=== PATIENT | female | born 1930 | race Caucasian/White ===

== ENCOUNTER 2017-08-28 11:22 | Emergency (ER) | payer MEDICARE, BC ==
--- NOTE | 2017-08-28 12:22 | EDM.PDOC ---
ED HPI GENERAL MEDICAL PROBLEM - General Chief Complaint: General Stated Complaint: WEAK/OUT OF IT/SOB Time Seen by Provider: 08/28/17 11:50 Source of Information: Reports: Patient, Old Records, Other (PT WAS SEEN TODAY BECAUSE OF INCREASED WEAKNESS AND SOME DIZZINESS. sHE HAD BEEN SEEN EARLIER AT [facility]. sHE HAS MOVED HER RECORDS TO [facility] AND SHE WILL BE SEEING dR Browning. ) History Limitations: Reports: No Limitations - History of Present Illness Onset: Gradual Duration: Day(s): Location: Reports: Other ( DIZZINESS AND WEAKNESS) Associated Symptoms: Reports: Weakness, Other (DIZZINESS) - Related Data Allergies Allergy/AdvReac Type Severity Reaction Status Date / Time codeine Allergy Severe Cannot Verified 08/28/17 11:58 Remember prochlorperazine edisylate Allergy Unknown Cannot Verified 08/28/17 11:58 [From Compazine] Remember prochlorperazine maleate Allergy Unknown Cannot Verified 08/28/17 11:58 [From Compazine] Remember ezetimibe [From Zetia] Allergy Cannot Verified 08/28/17 11:58 Remember midazolam HCl [From Versed] Allergy Rash Verified 08/28/17 11:58 Home Meds: Home Meds Aspirin [Isidro Chewable Aspirin] 81 mg PO QAM 08/15/13 [History] Multivit-Min/FA/Lycopene/Lut [Centrum Silver] 1 each PO QAM 08/15/13 [History] Rosuvastatin [Crestor] 2.5 mg PO QAM 08/15/13 [History] Docusate Sodium 100 mg PO DAILY 04/02/15 [History] Past Medical History Cardiovascular History: Reports: High Cholesterol Gastrointestinal History: Reports: Chronic Constipation, Diverticulosis Other Genitourinary History: urethracarnuncle 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 OB/BYN History: appt with ENGINEERING VICE PRESIDENT in [facility] shows abnormal ovary Musculoskeletal History: Reports: Fracture Other Musculoskeletal History: coccyx fx, left arm fx Neurological History: Reports: CVA Other Neuro History: L leg affected fatigues easily - Infectious Disease History Infectious Disease History: Reports: Mumps - Past Surgical History HEENT Surgical History: Reports: Eye Surgery, Tonsillectomy GI Surgical History: Reports: Appendectomy, Cholecystectomy Female Surgical History: Reports: D&C, Other (See Below) Other Female Surgeries/Procedures: urethral dilation surgery Neurological Surgical History: Reports: Lumbar Spine Musculoskeletal Surgical History: Reports: Arthroscopic Knee Social & Family History - Tobacco Use Smoking Status *Q: Never Smoker Second Hand Smoke Exposure: No - Caffeine Use Caffeine Use: Reports: Coffee - Alcohol Use Days Per Week of Alcohol Use: 0 - Recreational Drug Use Recreational Drug Use: No ED ROS GENERAL - Review of Systems Review Of Systems: See Below Constitutional: Reports: Weakness, Fatigue, Other ( APPETITE IS GOOD. ) HEENT: Reports: No Symptoms Respiratory: Reports: No Symptoms Cardiovascular: Reports: No Symptoms Endocrine: Reports: No Symptoms GI/Abdominal: Reports: No Symptoms : Reports: No Symptoms Musculoskeletal: Reports: No Symptoms Skin: Reports: No Symptoms Neurological: Reports: Dizziness, Weakness, Other ( NO SIG HEADACHE.) Psychiatric: Reports: Anxiety ED EXAM, GENERAL - Physical Exam Exam: See Below Free Text/Narrative:: PT ARRIVED WITH DIZZINESS AND FEELING OFF BALANCE. Exam Limited By: No Limitations General Appearance: Alert, No Apparent Distress, Other (PUPILS ARE EQUAL AND REACTIVE. ) Ears: Normal TMs Nose: Normal Inspection Throat/Mouth: Normal Inspection Head: Atraumatic Neck: Other (PT HAS NO THYROID ENLARGEMNT OF CAROTID BRUITS. ) Respiratory/Chest: No Respiratory Distress Cardiovascular: Regular Rate, Rhythm GI/Abdominal: Soft, Non-Tender (Female) Exam: Deferred Rectal (Female) Exam: Deferred Back Exam: Normal Inspection Extremities: Normal Inspection Neurological: Alert, Oriented, Normal Cognition Psychiatric: Normal Affect Course - Vital Signs Last Recorded V/S: Last Vital Signs Temp 35.1 C L 08/28/17 11:57 Pulse 79 08/28/17 13:42 Resp 19 08/28/17 13:42 BP 147/76 H 08/28/17 14:04 Pulse Ox 97 08/28/17 13:42 Orthostatic Blood Pressure [ 152/71 Standing] Orthostatic Blood Pressure [ 142/73 Sitting] Orthostatic Blood Pressure [ 158/74 Supine] - Orders/Labs/Meds Labs: Laboratory Tests 08/28/17 08/28/17 08/28/17 Range/Units 12:44 12:49 12:49 WBC 6.1 (4.5-11.0) K/uL RBC 4.61 (3.30-5.50) M/uL Hgb 13.7 (12.0-15.0) g/dL Hct 40.3 (36.0-48.0) % MCV 87 (80-98) fL MCH 30 (27-31) pg MCHC 34 (32-36) % Plt Count 232 (150-400) K/uL Neut % (Auto) 64 (36-66) % Lymph % (Auto) 26 (24-44) % [place] % (Auto) 9 H (2-6) % Eos % (Auto) 2 (2-4) % Baso % (Auto) 0 (0-1) % Sodium 138 L (140-148) mmol/L Potassium 4.3 (3.6-5.2) mmol/L Chloride 103 (100-108) mmol/L Carbon Dioxide 29 (21-32) mmol/L Anion Gap 10.3 (5.0-14.0) mmol/L BUN 22 H (7-18) mg/dL Creatinine 0.9 (0.6-1.0) mg/dL Est Cr Clr Drug Dosing 35.74 mL/min Estimated GFR (MDRD) 59 L (>60) Glucose 95 (74-106) mg/dL Calcium 9.0 (8.5-10.1) mg/dL Total Bilirubin 0.3 (0.2-1.0) mg/dL AST 23 (15-37) U/L ALT 28 (12-78) U/L Alkaline Phosphatase 67 (46-116) U/L Troponin I (0.000-0.056) ng/mL C-Reactive Protein (0.0-0.3) mg/dL Total Protein 6.3 L (6.4-8.2) g/dL Albumin 3.3 L (3.4-5.0) g/dL Globulin 3.0 (2.3-3.5) g/dL Albumin/Globulin Ratio 1.1 L (1.2-2.2) TSH, Ultra Sensitive (0.358-3.740) uIU/mL Urine Color Yellow Urine Appearance Clear Urine pH 6.5 (4.5-8.0) Ur Specific [place] 1.010 (1.008-1.030) Urine Protein Negative (NEGATIVE) mg/dL Urine Glucose (UA) Normal (NEGATIVE) mg/dL Urine Ketones Negative (NEGATIVE) mg/dL Urine Occult Blood Negative (NEGATIVE) Urine Nitrite Negative (NEGATIVE) Urine Bilirubin Negative (NEGATIVE) Urine Urobilinogen Normal (NORMAL) mg/dL Ur Leukocyte Esterase Negative (NEGATIVE) Urine RBC 0-5 (0-5) Urine WBC Not seen (0-5) Ur Epithelial Cells Not seen Amorphous Sediment Not seen Urine Bacteria Not seen Urine Mucus Not seen 08/28/17 08/28/17 08/28/17 Range/Units 12:49 13:10 13:11 WBC (4.5-11.0) K/uL RBC (3.30-5.50) M/uL Hgb (12.0-15.0) g/dL Hct (36.0-48.0) % MCV (80-98) fL MCH (27-31) pg MCHC (32-36) % Plt Count (150-400) K/uL Neut % (Auto) (36-66) % Lymph % (Auto) (24-44) % [place] % (Auto) (2-6) % Eos % (Auto) (2-4) % Baso % (Auto) (0-1) % Sodium (140-148) mmol/L Potassium (3.6-5.2) mmol/L Chloride (100-108) mmol/L Carbon Dioxide (21-32) mmol/L Anion Gap (5.0-14.0) mmol/L BUN (7-18) mg/dL Creatinine (0.6-1.0) mg/dL Est Cr Clr Drug Dosing mL/min Estimated GFR (MDRD) (>60) Glucose (74-106) mg/dL Calcium (8.5-10.1) mg/dL Total Bilirubin (0.2-1.0) mg/dL AST (15-37) U/L ALT (12-78) U/L Alkaline Phosphatase (46-116) U/L Troponin I < 0.017 (0.000-0.056) ng/mL C-Reactive Protein < 0.05 (0.0-0.3) mg/dL Total Protein (6.4-8.2) g/dL Albumin (3.4-5.0) g/dL Globulin (2.3-3.5) g/dL Albumin/Globulin Ratio (1.2-2.2) TSH, Ultra Sensitive 1.279 (0.358-3.740) uIU/mL Urine Color Urine Appearance Urine pH (4.5-8.0) Ur Specific [place] (1.008-1.030) Urine Protein (NEGATIVE) mg/dL Urine Glucose (UA) (NEGATIVE) mg/dL Urine Ketones (NEGATIVE) mg/dL Urine Occult Blood (NEGATIVE) Urine Nitrite (NEGATIVE) Urine Bilirubin (NEGATIVE) Urine Urobilinogen (NORMAL) mg/dL Ur Leukocyte Esterase (NEGATIVE) Urine RBC (0-5) Urine WBC (0-5) Ur Epithelial Cells Amorphous Sediment Urine Bacteria Urine Mucus - Re-Assessments/Exams Free Text/Narrative Re-Assessment/Exam: 09/01/17 10:05 PT WAS FOUND TO HAVE NORMAL LAB WORK. SHE WILL BE SCHEDULED FOR A CAROTID US ANS SHE WILL SEE DR BROWNING BACK IN FOLLOW UP. Departure - Departure Time of Disposition: 15:33 Disposition: Home, Self-Care 01 Condition: Fair Clinical Impression: Fatigue, Dizziness - Discharge Information Instructions: Fatigue, Dizziness, [id number] Referrals: Rylan Browning MD [Primary Care Provider] - Forms: ED Department Discharge Care Plan Goals: rtc for a carotid Us, repeat appointment at [place]. with Dr Browning, next week.
[2017-08-28 15:00] VITALS: BP 147/76
== END 2017-08-28 16:18 | disposition home or self-care (01) ==
LOC: JP.ED 11:22
DX: R53.83 Other fatigue (principal); R42 Dizziness and giddiness; E78.00 Pure hypercholesterolemia, unspecified; Z86.73 Personal history of transient ischemic attack (TIA), and cerebral infarction without residual deficits; Z88.5 Allergy status to narcotic agent; Z88.8 Allergy status to other drugs, medicaments and biological substances; Z79.899 Other long term (current) drug therapy; Z79.82 Long term (current) use of aspirin
CPT/HCPCS: 36415; 80053; 81001; 84443; 84484; 85025; 86140; 99285

== ENCOUNTER 2018-09-13 10:09 | Observation (INO) | payer MEDICARE, BC ==
[2018-09-13] MEDS ORDERED: Ondansetron 4 MG/2 ML SDV IVPUSH ONE (10:44)
--- NOTE | 2018-09-13 10:44 | EDM.PDOC ---
ED HPI GENERAL MEDICAL PROBLEM - General Chief Complaint: Syncope Stated Complaint: VIA NORTH Time Seen by Provider: 09/13/18 10:41 Source of Information: Reports: Patient History Limitations: Reports: No Limitations - History of Present Illness INITIAL COMMENTS - FREE TEXT/NARRATIVE: Pt got up this am and she was working in the kitchen. The last time she remembers was about 9am. At 10 am she found herself on the floor she had broken a bar stool in her kitchen, She was very weak but she was able to crawl to the phone. When she sits up now she is very liteheaded. Onset: Today, Sudden Duration: Minutes: Location: Reports: Head Associated Symptoms: Reports: Syncope, Weakness - Related Data Allergies Allergy/AdvReac Type Severity Reaction Status Date / Time codeine Allergy Severe Cannot Verified 09/13/18 10:15 Remember prochlorperazine edisylate Allergy Unknown Cannot Verified 09/13/18 10:15 [From Compazine] Remember prochlorperazine maleate Allergy Unknown Cannot Verified 09/13/18 10:15 [From Compazine] Remember ezetimibe [From Zetia] Allergy Cannot Verified 09/13/18 10:15 Remember midazolam HCl [From Versed] Allergy Rash Verified 09/13/18 10:15 Home Meds: Home Meds Aspirin [Isidro Chewable Aspirin] 81 mg PO QAM 08/15/13 [History] Multivit-Min/FA/Lycopene/Lut [Centrum Silver] 1 each PO QAM 08/15/13 [History] Rosuvastatin [Crestor] 5 mg PO ASDIRECTED 08/15/13 [History] Docusate Sodium 100 mg PO DAILY 04/02/15 [History] Past Medical History HEENT History: Reports: None Cardiovascular History: Reports: High Cholesterol Gastrointestinal History: Reports: Chronic Constipation, Diverticulosis Genitourinary History: Reports: Other (See Below) Other Genitourinary History: urethracarnuncle 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 OFFICER in [facility] shows abnormal ovary Musculoskeletal History: Reports: Fracture Other Musculoskeletal History: coccyx fx, left arm fx Neurological History: Reports: CVA Other Neuro History: L leg affected fatigues easily - Infectious Disease History Infectious Disease History: Reports: Mumps - Past Surgical History Head Surgeries/Procedures: Reports: None HEENT Surgical History: Reports: Eye Surgery, Tonsillectomy Cardiovascular Surgical History: Reports: None GI Surgical History: Reports: Appendectomy, Cholecystectomy Female Surgical History: Reports: D&C, Other (See Below) Other Female Surgeries/Procedures: urethral dilation surgery Neurological Surgical History: Reports: Lumbar Spine Musculoskeletal Surgical History: Reports: Arthroscopic Knee Dermatological Surgical History: Reports: None Social & Family History - Tobacco Use Smoking Status *Q: Never Smoker Second Hand Smoke Exposure: No - Caffeine Use Caffeine Use: Reports: Coffee - Recreational Drug Use Recreational Drug Use: No ED ROS GENERAL - Review of Systems Review Of Systems: See Below Constitutional: Reports: Weakness HEENT: Reports: No Symptoms Respiratory: Reports: No Symptoms Cardiovascular: Reports: No Symptoms Endocrine: Reports: No Symptoms GI/Abdominal: Reports: No Symptoms : Reports: No Symptoms Musculoskeletal: Reports: Back Pain Skin: Reports: No Symptoms Neurological: Reports: Syncope, Other (pt is feeling lite headed at this time. ) Psychiatric: Reports: No Symptoms - Physical Exam Exam: See Below Text/Narrative:: pt had an episode this am when she was working in the kitchen and she found herself on the floor 1 hr later > When she woke up she felt terribly weak. She felt like she was going to pass out whenever she tried to sit up. Exam Limited By: No Limitations General Appearance: Alert, No Apparent Distress, Anxious, Other (pupils are equal and reactive. ) Ears: Normal TMs Nose: Normal Inspection Throat/Mouth: Normal Inspection Head Exam: Atraumatic Neck: Normal Inspection Respiratory/Chest: No Respiratory Distress Cardiovascular: Regular Rate, Rhythm, Other (pt diod have some irregularities in the ambulance. ) GI/Abdominal: Soft, Non-Tender Rectal (Female) Exam: Deferred Neuro Exam (Abbreviated): Alert, Oriented, Normal Cognition Back Exam: Normal Inspection Extremities: Normal Inspection Psychiatric: Anxious Course - Vital Signs Last Recorded V/S: Last Vital Signs Temp 36.1 C 09/15/18 07:00 Pulse 61 09/15/18 07:00 Resp 16 09/15/18 07:00 BP 127/63 09/15/18 07:00 Pulse Ox 93 L 09/15/18 07:00 Orthostatic Blood Pressure [ 96/48 Sitting] Orthostatic Blood Pressure [ 103/45 Supine] - Orders/Labs/Meds Labs: Laboratory Tests 09/13/18 09/13/18 09/13/18 Range/Units 10:11 10:25 10:25 WBC 5.4 (4.5-11.0) K/uL RBC 4.88 (3.30-5.50) M/uL Hgb 14.4 (12.0-15.0) g/dL Hct 42.9 (36.0-48.0) % MCV 88 (80-98) fL MCH 30 (27-31) pg MCHC 34 (32-36) % Plt Count 265 (150-400) K/uL Neut % (Auto) 55 (36-66) % Lymph % (Auto) 34 (24-44) % [place] % (Auto) 9 H (2-6) % Eos % (Auto) 2 (2-4) % Baso % (Auto) 1 (0-1) % Sodium (140-148) mmol/L Potassium (3.6-5.2) mmol/L Chloride (100-108) mmol/L Carbon Dioxide (21-32) mmol/L Anion Gap (5.0-14.0) mmol/L BUN (7-18) mg/dL Creatinine (0.6-1.0) mg/dL Est Cr Clr Drug Dosing mL/min Estimated GFR (MDRD) (>60) Glucose (74-106) mg/dL Calcium (8.5-10.1) mg/dL Total Bilirubin (0.2-1.0) mg/dL AST (15-37) U/L ALT (12-78) U/L Alkaline Phosphatase (46-116) U/L Creatine Kinase (26-192) U/L Troponin I < 0.017 (0.000-0.056) ng/mL Total Protein (6.4-8.2) g/dL Albumin (3.4-5.0) g/dL Globulin (2.3-3.5) g/dL Albumin/Globulin Ratio (1.2-2.2) Urine Color Yellow Urine Appearance Clear Urine pH 6.0 (4.5-8.0) Ur Specific [place] 1.015 (1.008-1.030) Urine Protein Negative (NEGATIVE) mg/dL Urine Glucose (UA) Normal (NEGATIVE) mg/dL Urine Ketones 15 H (NEGATIVE) mg/dL Urine Occult Blood Negative (NEGATIVE) Urine Nitrite Negative (NEGATIVE) Urine Bilirubin Negative (NEGATIVE) Urine Urobilinogen Normal (NORMAL) mg/dL Ur Leukocyte Esterase Negative (NEGATIVE) Urine RBC 0-5 (0-5) Urine WBC 0-5 (0-5) Ur Epithelial Cells Rare Amorphous Sediment Not seen Urine Bacteria Moderate Urine Mucus Not seen 09/13/18 09/13/18 Range/Units 10:25 10:35 WBC (4.5-11.0) K/uL RBC (3.30-5.50) M/uL Hgb (12.0-15.0) g/dL Hct (36.0-48.0) % MCV (80-98) fL MCH (27-31) pg MCHC (32-36) % Plt Count (150-400) K/uL Neut % (Auto) (36-66) % Lymph % (Auto) (24-44) % [place] % (Auto) (2-6) % Eos % (Auto) (2-4) % Baso % (Auto) (0-1) % Sodium 137 L (140-148) mmol/L Potassium 4.1 (3.6-5.2) mmol/L Chloride 102 (100-108) mmol/L Carbon Dioxide 28 (21-32) mmol/L Anion Gap 11.1 (5.0-14.0) mmol/L BUN 19 H (7-18) mg/dL Creatinine 1.1 H (0.6-1.0) mg/dL Est Cr Clr Drug Dosing 28.68 mL/min Estimated GFR (MDRD) 47 L (>60) Glucose 112 H (74-106) mg/dL Calcium 9.5 (8.5-10.1) mg/dL Total Bilirubin 0.6 D (0.2-1.0) mg/dL AST 22 (15-37) U/L ALT 27 (12-78) U/L Alkaline Phosphatase 85 (46-116) U/L Creatine Kinase 73 (26-192) U/L Troponin I (0.000-0.056) ng/mL Total Protein 7.1 (6.4-8.2) g/dL Albumin 3.4 (3.4-5.0) g/dL Globulin 3.7 H (2.3-3.5) g/dL Albumin/Globulin Ratio 0.9 L (1.2-2.2) Urine Color Urine Appearance Urine pH (4.5-8.0) Ur Specific [place] (1.008-1.030) Urine Protein (NEGATIVE) mg/dL Urine Glucose (UA) (NEGATIVE) mg/dL Urine Ketones (NEGATIVE) mg/dL Urine Occult Blood (NEGATIVE) Urine Nitrite (NEGATIVE) Urine Bilirubin (NEGATIVE) Urine Urobilinogen (NORMAL) mg/dL Ur Leukocyte Esterase (NEGATIVE) Urine RBC (0-5) Urine WBC (0-5) Ur Epithelial Cells Amorphous Sediment Urine Bacteria Urine Mucus Meds: Medications Discontinued Medications Generic Name Dose Route Start Last Admin Trade Name Freq PRN Reason Stop Dose Admin Acetaminophen 650 mg 09/13/18 13:49 09/13/18 19:18 Tylenol PO 650 mg Q4H PRN Administration Pain (Mild 1-3)/fever Aspirin 81 mg 09/14/18 09:00 09/15/18 11:34 Aspirin PO Not Given QAM ARI Diphenhydramine HCl 25 mg 09/13/18 22:05 Benadryl PO BEDTIME PRN Insomnia Enoxaparin Sodium 40 mg 09/13/18 14:00 09/14/18 13:34 Lovenox SUBCUT 40 mg Q24H ARI Administration Sodium Chloride 1,000 mls @ 999 mls/hr 09/13/18 11:30 09/13/18 11:40 Normal Saline IV 999 mls/hr ASDIRECTED ARI Administration Sodium Chloride 1,000 mls @ 400 mls/hr 09/13/18 13:15 Normal Saline IV ASDIRECTED ARI Sodium Chloride 1,000 mls @ 75 mls/hr 09/13/18 13:49 09/14/18 05:00 Normal Saline IV 75 mls/hr ASDIRECTED ARI Administration Ondansetron HCl 4 mg 09/13/18 10:44 09/13/18 11:11 Zofran IVPUSH 09/13/18 10:45 4 mg ONETIME ONE Administration Ondansetron HCl 4 mg 09/13/18 13:49 Zofran IV Q4H PRN Nausea/Vomiting Rosuvastatin Calcium 2.5 mg 09/14/18 09:00 09/15/18 11:34 Crestor PO Not Given QAM ARI Senna/Docusate Sodium 1 tab 09/13/18 13:49 Senna Plus PO BID PRN Constipation Sodium Chloride 10 ml 09/13/18 13:49 Saline Flush FLUSH ASDIRECTED PRN Keep Vein Open - Re-Assessments/Exams Free Text/Narrative Re-Assessment/Exam: 09/13/18 13:14 pt was monitored for her rhythm which looked good. When she would sit up her bp did vary and dropped significantly. She was very lite headed at that time. 09/13/18 13:15 Her lab work did look good. Her ekg did not show acute problems. Her cat scan of the head was normal. Her xrays of the lumbar spine and cocyx was normal 09/13/18 13:18 Pt did have a sig bp drop when she sat up. Departure - Departure Time of Disposition: 13:18 Disposition: Admitted As Inpatient 65 Condition: Fair Clinical Impression: Postural hypotension, Dehydration, Arrhythmia, atrial - Discharge Information
[2018-09-13] MEDS ORDERED: Sodium Chloride 0.9% 1,000 ML IV SCH ×2 (11:30→13:15)
--- NOTE | 2018-09-13 13:01 | CRLCT ---
Final Report: INDICATION: Passed out. TECHNIQUE: CT head without IV contrast. FINDINGS: The hyperdense area nodularity and/or nodular opacity in the left sphenoid sinus measures 1.5 cm and could be related to a polyp, or dense mucus and fluid or other mass density. I suspect this is likely inflammatory. Small amounts of fluid and mucosal thickening in the ethmoidal sinuses. Mild to moderate cerebral and cerebellar atrophy. No intracranial hemorrhage, edema, or mass effect. Mild small vessel ischemic disease. Remainder negative. IMPRESSION: 1. Chronic intracranial disease as described above without acute intracranial disease. 2. Moderate-sized hyperdense area of nodular opacity in the left sphenoid sinus could be a polyp, mass or more likely inflammatory opacity. Mild bilateral ethmoidal sinusitis. Please note that all CT scans at this facility use dose modulation, iterative reconstruction, and/or weight-based dosing when appropriate to reduce radiation dose to as low as reasonably achievable. Dictated by Song Lucero MD @ Sep 13 2018 11:47AM (Electronic Signature) MTDD
--- NOTE | 2018-09-13 13:06 | CRLCR ---
Final Report: INDICATION: Pain in the lower lumbar and coccyx area. Pain in pelvis. Fell. TECHNIQUE: AP pelvis. Four views lumbar spine. COMPARISON: Pelvic views 04/02/2015. FINDINGS: No acute fracture or dislocation in the pelvis. Mild to moderate degenerative arthritis both hips slightly more prominent. Osteopenia. Degenerative changes SI joints and pubic symphysis. Mild to moderate thoracolumbar scoliosis. Nonspecific gas distention of stomach, small bowel and colon. Moderately large amount of stool in the rectum consistent with fecal impaction. Mild anterior subluxation of L4 on L5 stable. Marked narrowing L5 interspace. Moderate narrowing L4 interspace. Mild degenerate hypertrophic changes throughout the lumbar spine with more advanced lower lumbar facet arthropathy. Remainder negative. IMPRESSION: Lateral view does not include the coccyx bone. If desired additional views of the coccyx bone could be obtained to exclude fracture or posttraumatic abnormality of the spine. Without a lateral view fracture subluxation of the coccyx bone cannot be excluded. No acute fracture or dislocation in the pelvis. No acute fracture in lumbar spine. Stable mild anterior subluxation of L4 on L5. Degenerative arthritis spine and hips. Dictated by Song Lucero MD @ Sep 13 2018 12:08PM (Electronic Signature) [email or web address]
--- NOTE | 2018-09-13 13:09 | CRLCR ---
Final Report: INDICATION: Pain in the lower lumbar and coccyx area. TECHNIQUE: AP pelvis. Four views lumbar spine. COMPARISON: Pelvic views 04/02/2015. FINDINGS: No acute fracture or dislocation in the pelvis. Mild to moderate degenerative arthritis both hips slightly more prominent. Osteopenia. Degenerative changes SI joints and pubic symphysis. Mild to moderate thoracolumbar scoliosis. Nonspecific gas distention of stomach, small bowel and colon. Moderately large amount of stool in the rectum consistent with fecal impaction. Mild anterior subluxation of L4 on L5 stable. Marked narrowing L5 interspace. Moderate narrowing L4 interspace. Mild degenerate hypertrophic changes throughout the lumbar spine with more advanced lower lumbar facet arthropathy. Remainder negative. IMPRESSION: Lateral view does not include the coccyx bone. If desired additional views of the coccyx bone could be obtained to exclude fracture or posttraumatic abnormality of the spine. Without a lateral view fracture subluxation of the coccyx bone cannot be excluded. No acute fracture or dislocation in the pelvis. No acute fracture in lumbar spine. Stable mild anterior subluxation of L4 on L5. Degenerative arthritis spine and hips. Dictated by Song Lucero MD @ Sep 13 2018 12:06PM (Electronic Signature) [email or web address]
--- NOTE | 2018-09-13 13:22 | PCM.HP ---
H&P History of Present Illness - General Date of Service: 09/13/18 Admit Problem/Dx: Admission Diagnosis/Problem Admission Diagnosis/Problem Syncope Source of Information: Patient, Family, Provider, RN Notes Reviewed History Limitations: Reports: No Limitations - History of Present Illness Initial Comments - Free Text/Narative: Ms. Gipson is an 88-year-old woman who is admitted through the emergency department to observation status, for further evaluation of a syncopal episode. She was feeling well this morning and was up moving about in her kitchen when she suddenly lost consciousness and woke up on the floor. She did not have much in the way of preceding symptoms that had been feeling well up until the episode of syncope. She has a history of 1 previous syncopal episode that occurred approximately 15 years ago. She is otherwise been feeling well denies any history of chest pain, palpitations, or lightheadedness. Evaluation in the emergency department is been remarkable for orthostatic hypotension but no other significant abnormalities have been identified. Laboratory studies and CT scan of the head were unremarkable. Cardiac monitoring thus far in the emergency department has shown no significant dysrhythmias. She currently is on no blood pressure lowering medications. - Related Data Allergies/Adverse Reactions: Allergies Allergy/AdvReac Type Severity Reaction Status Date / Time codeine Allergy Severe Cannot Verified 09/13/18 10:15 Remember prochlorperazine edisylate Allergy Unknown Cannot Verified 09/13/18 10:15 [From Compazine] Remember prochlorperazine maleate Allergy Unknown Cannot Verified 09/13/18 10:15 [From Compazine] Remember ezetimibe [From Zetia] Allergy Cannot Verified 09/13/18 10:15 Remember midazolam HCl [From Versed] Allergy Rash Verified 09/13/18 10:15 Home Medications: Home Meds Aspirin [Isidro Chewable Aspirin] 81 mg PO QAM 08/15/13 [History] Multivit-Min/FA/Lycopene/Lut [Centrum Silver] 1 each PO QAM 08/15/13 [History] Rosuvastatin [Crestor] 2.5 mg PO QAM 08/15/13 [History] Docusate Sodium 100 mg PO DAILY 04/02/15 [History] Past Medical History HEENT History: Reports: None Cardiovascular History: Reports: High Cholesterol Gastrointestinal History: Reports: Chronic Constipation, Diverticulosis Genitourinary History: Reports: Other (See Below) Other Genitourinary History: urethracarnuncle 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 OB/BYN History: appt with [facility] in [facility] shows abnormal ovary Musculoskeletal History: Reports: Fracture Other Musculoskeletal History: coccyx fx, left arm fx Neurological History: Reports: CVA Other Neuro History: L leg affected fatigues easily - Infectious Disease History Infectious Disease History: Reports: Mumps - Past Surgical History Head Surgeries/Procedures: Reports: None HEENT Surgical History: Reports: Eye Surgery, Tonsillectomy Cardiovascular Surgical History: Reports: None GI Surgical History: Reports: Appendectomy, Cholecystectomy Female Surgical History: Reports: D&C, Other (See Below) Other Female Surgeries/Procedures: urethral dilation surgery Neurological Surgical History: Reports: Lumbar Spine Musculoskeletal Surgical History: Reports: Arthroscopic Knee Dermatological Surgical History: Reports: None Social & Family History - Tobacco Use Smoking Status *Q: Never Smoker Second Hand Smoke Exposure: No - Caffeine Use Caffeine Use: Reports: Coffee - Recreational Drug Use Recreational Drug Use: No H&P Review of Systems - Review of Systems: Review Of Systems: See Below General: Denies: Fever, Chills, Weakness HEENT: Reports: No Symptoms Pulmonary: Reports: No Symptoms Cardiovascular: Reports: No Symptoms Gastrointestinal: Reports: No Symptoms Genitourinary: Reports: No Symptoms Musculoskeletal: Reports: No Symptoms Skin: Reports: No Symptoms Psychiatric: Reports: No Symptoms Neurological: Reports: No Symptoms Hematologic/Lymphatic: Reports: No Symptoms Immunologic: Reports: No Symptoms Exam - Exam Exam: See Below - Vital Signs Vital Signs: Last Vital Signs Temp 95.6 F 09/13/18 10:17 Pulse 61 09/13/18 12:15 Resp 17 09/13/18 12:15 BP 128/56 L 09/13/18 12:15 Pulse Ox 96 09/13/18 12:15 Orthostatic Blood Pressure [ 96/48 Sitting] Orthostatic Blood Pressure [ 103/45 Supine] Weight: 124 lb - Exam Quality Assessment: DVT Prophylaxis General: Alert, Oriented, Cooperative, Mild Distress HEENT: Conjunctiva Clear, Hearing Intact, Mucosa Moist & [place], Normal Nasal Septum, Posterior Pharynx Clear, Pupils Equal Neck: Supple, Trachea Midline, +2 Carotid Pulse wo Bruit Lungs: Clear to Auscultation, Normal Respiratory Effort Cardiovascular: Regular Rate, Regular Rhythm, Normal S1, Normal S2. No: Systolic Murmur, Diastolic Murmur GI/Abdominal Exam: Soft, Non-Tender, No Organomegaly, No Distention Extremities: Non-Tender, No Pedal Edema Skin: Warm, Dry, Intact Neurological: Cranial Nerves Intact, Strength Equal Bilateral, Normal Speech, Normal Tone, Sensation Intact. No: Focal Deficit Neuro Extensive - Mental Status: Alert, Oriented x3, Normal Mood/Affect, Normal Cognition, Memory Intact - Patient Data Lab Results Last 24 hrs: Laboratory Results - last 24 hr 09/13/18 09/13/18 09/13/18 Range/Units 10:25 10:25 10:25 WBC 5.4 (4.5-11.0) K/uL RBC 4.88 (3.30-5.50) M/uL Hgb 14.4 (12.0-15.0) g/dL Hct 42.9 (36.0-48.0) % MCV 88 (80-98) fL MCH 30 (27-31) pg MCHC 34 (32-36) % Plt Count 265 (150-400) K/uL Neut % (Auto) 55 (36-66) % Lymph % (Auto) 34 (24-44) % [place] % (Auto) 9 H (2-6) % Eos % (Auto) 2 (2-4) % Baso % (Auto) 1 (0-1) % Sodium 137 L (140-148) mmol/L Potassium 4.1 (3.6-5.2) mmol/L Chloride 102 (100-108) mmol/L Carbon Dioxide 28 (21-32) mmol/L Anion Gap 11.1 (5.0-14.0) mmol/L BUN 19 H (7-18) mg/dL Creatinine 1.1 H (0.6-1.0) mg/dL Est Cr Clr Drug Dosing 28.68 mL/min Estimated GFR (MDRD) 47 L (>60) Glucose 112 H (74-106) mg/dL Calcium 9.5 (8.5-10.1) mg/dL Total Bilirubin 0.6 D (0.2-1.0) mg/dL AST 22 (15-37) U/L ALT 27 (12-78) U/L Alkaline Phosphatase 85 (46-116) U/L Creatine Kinase (26-192) U/L Troponin I < 0.017 (0.000-0.056) ng/mL Total Protein 7.1 (6.4-8.2) g/dL Albumin 3.4 (3.4-5.0) g/dL Globulin 3.7 H (2.3-3.5) g/dL Albumin/Globulin Ratio 0.9 L (1.2-2.2) 09/13/18 Range/Units 10:35 WBC (4.5-11.0) K/uL RBC (3.30-5.50) M/uL Hgb (12.0-15.0) g/dL Hct (36.0-48.0) % MCV (80-98) fL MCH (27-31) pg MCHC (32-36) % Plt Count (150-400) K/uL Neut % (Auto) (36-66) % Lymph % (Auto) (24-44) % Sutter % (Auto) (2-6) % Eos % (Auto) (2-4) % Baso % (Auto) (0-1) % Sodium (140-148) mmol/L Potassium (3.6-5.2) mmol/L Chloride (100-108) mmol/L Carbon Dioxide (21-32) mmol/L Anion Gap (5.0-14.0) mmol/L BUN (7-18) mg/dL Creatinine (0.6-1.0) mg/dL Est Cr Clr Drug Dosing mL/min Estimated GFR (MDRD) (>60) Glucose (74-106) mg/dL Calcium (8.5-10.1) mg/dL Total Bilirubin (0.2-1.0) mg/dL AST (15-37) U/L ALT (12-78) U/L Alkaline Phosphatase (46-116) U/L Creatine Kinase 73 (26-192) U/L Troponin I (0.000-0.056) ng/mL Total Protein (6.4-8.2) g/dL Albumin (3.4-5.0) g/dL Globulin (2.3-3.5) g/dL Albumin/Globulin Ratio (1.2-2.2) Result Diagrams: 09/13/18 10:25 09/13/18 10:25 *Q Meaningful Use (ADM) - VTE Risk Assess *Q Each Risk Factor Represents 1 Point: None Total Score 1 Point Risk Factors: 0 Each Risk Factor Represents 2 Points: None Total Score 2 Point Risk Factors: 0 Each Risk Factor Represents 3 Points: Age 75 Years or Greater Total Score 3 Point Risk Factors: 3 Each Risk Factor Represents 5 Points: None Total Score 5 Point Risk Factors: 0 Venous Thromboembolism Risk Factor Score *Q: 3 Problem List Initiated/Reviewed/Updated: Yes Orders Last 24hrs: Active Orders 24 hr Category Date Time Status Patient Status Manage Transfer [TRANSFER] Routine ADT 09/13/18 13:16 Ordered Cardiac Monitoring [RC] .As Directed Care 09/13/18 10:12 Active EKG Documentation Completion [RC] ASDIRECTED Care 09/13/18 10:12 Active Orthostatic Vital Signs [RC] ASDIRECTED Care 09/13/18 10:36 Active UA W/MICROSCOPIC [URIN] Urgent Lab 09/13/18 10:11 Ordered Sodium Chloride 0.9% [Normal Saline] 1,000 ml Med 09/13/18 11:30 Active IV ASDIRECTED Sodium Chloride 0.9% [Normal Saline] 1,000 ml Med 09/13/18 13:15 Active IV ASDIRECTED Resuscitation Status Routine Resus Stat 09/13/18 13:17 Ordered EKG 12 Lead [EK] Routine Ther 09/13/18 10:12 Ordered Medication Orders Sodium Chloride (Normal Saline) 1,000 mls @ 999 mls/hr IV ASDIRECTED ARI Last Admin: 09/13/18 11:40 Dose: 999 mls/hr Sodium Chloride (Normal Saline) 1,000 mls @ 400 mls/hr IV ASDIRECTED ARI Assessment/Plan Comment:: ASSESSMENT AND PLAN SYNCOPAL EPISODE-no preceding symptoms or prodrome. Found to have significant orthostasis in the emergency department, this has resolved after infusion of IV fluids. Currently on no lung pressure lowering medications with no history of significant cardiac dysrhythmias. -Cardiac monitoring -Orthostatic vital signs -Consider outpatient echocardiogram and Holter monitor -Further IV fluids for hydration PAIN RIGHT BUTTOCK AND HIP-x-rays of the lumbar spine, pelvis, and hip showed no evidence of fracture. Pain is likely secondary to a soft tissue injury from her fall. -Tylenol as needed for pain -Physical therapy consult in a.m. -Consider further evaluation with CT scan if she is unable to ambulate or pain worsens CHRONIC KIDNEY DISEASE STAGE III -Closely monitor urine output and renal function during hospital stay MAINTENANCE ISSUES -DVT prophylaxis; Lovenox 40 mg subcutaneous daily -GI prophylaxis; not indicated -Dubois catheter; not indicated -Nutrition; regular diet -Nicotine dependence; not required CODE STATUS-FULL CODE ADMISSION STATUS-patient will be admitted to inpatient status, expect at least a 2 night hospital stay for evaluation and management of problems as outlined above. At the time of this admission I do not reasonably expected evaluation and management of this problem will require more than a 96 hour hospital stay. DISPOSITION-anticipate discharge to home after the hospital stay. PRIMARY CARE PROVIDER-Dr. Carlin
[2018-09-13] MEDS ORDERED: Acetaminophen 325 MG Tab PO PRN (13:49)
[2018-09-13] MEDS ORDERED: Sodium Chloride 0.9% 10 ML Syringe FLUSH PRN (13:49)
[2018-09-13] MEDS ORDERED: Ondansetron 4 MG/2 ML SDV IV PRN (13:49)
[2018-09-13] MEDS: Sodium Chloride 0.9% 1,000 ML IV SCH (15:27)
[2018-09-13] MEDS: Enoxaparin 40 MG/0.4 ML Syringe SUBCUT SCH (16:59)
[2018-09-13] MEDS ORDERED: diphenhydrAMINE 25 MG Cap PO PRN (22:05)
[2018-09-14] MEDS: Sodium Chloride 0.9% 1,000 ML IV SCH (05:00)
[2018-09-14] MEDS: Rosuvastatin 10 MG Tab PO SCH (10:02)
[2018-09-14] MEDS: Aspirin 81 MG Tab.Chew PO SCH (10:03)
[2018-09-14] MEDS: Enoxaparin 40 MG/0.4 ML Syringe SUBCUT SCH (13:34)
--- NOTE | 2018-09-14 17:26 | PCM.PN ---
- General Info Date of Service: 09/14/18 Subjective Update: Ms. Gipson has been stable since admission, no significant cardiac dysrhythmias identified on cardiac monitoring. Orthostatic vital signs have in stable with no significant drops. Continues to experience soreness in her buttock and leg, but is able to bear weight and ambulate with assistance. Remains fairly weak and fatigued. Functional Status: Reports: Tolerating Diet, Ambulating, Urinating - Review of Systems General: Reports: Weakness. Denies: Fever, Chills Pulmonary: Reports: No Symptoms Cardiovascular: Reports: No Symptoms Gastrointestinal: Reports: No Symptoms Musculoskeletal: Reports: Other (Buttock and leg pain) - Patient Data Vitals - Most Recent: Last Vital Signs Temp 97.1 F 09/14/18 16:00 Pulse 73 09/14/18 16:00 Resp 18 09/14/18 16:00 BP 131/68 09/14/18 16:00 Pulse Ox 96 09/14/18 16:00 Orthostatic Blood Pressure [ 135/68 Standing] Orthostatic Blood Pressure [ 130/74 Sitting] Orthostatic Blood Pressure [ 106/55 Supine] Weight - Most Recent: 135 lb I&O - Last 24 Hours: Intake & Output 09/14/18 09/14/18 09/14/18 06:59 14:59 22:59 Intake Total 779 Output Total 900 Balance 779 -900 Lab Results Last 24 Hours: Laboratory Results - last 24 hr 09/14/18 09/14/18 Range/Units 04:30 05:00 WBC 4.5 (4.5-11.0) K/uL RBC 4.24 (3.30-5.50) M/uL Hgb 12.4 D (12.0-15.0) g/dL Hct 37.4 (36.0-48.0) % MCV 88 (80-98) fL MCH 29 (27-31) pg MCHC 33 (32-36) % Plt Count 204 (150-400) K/uL Neut % (Auto) 48 (36-66) % Lymph % (Auto) 40 (24-44) % [place] % (Auto) 9 H (2-6) % Eos % (Auto) 2 (2-4) % Baso % (Auto) 0 (0-1) % Sodium 139 L (140-148) mmol/L Potassium 3.9 (3.6-5.2) mmol/L Chloride 108 (100-108) mmol/L Carbon Dioxide 25 (21-32) mmol/L Anion Gap 9.9 (5.0-14.0) mmol/L BUN 19 H (7-18) mg/dL Creatinine 1.0 (0.6-1.0) mg/dL Est Cr Clr Drug Dosing 31.55 mL/min Estimated GFR (MDRD) 52 L (>60) Glucose 84 (74-106) mg/dL Calcium 8.4 L (8.5-10.1) mg/dL Magnesium 1.8 (1.8-2.4) mg/dL Med Orders - Current: Current Medications Acetaminophen (Tylenol) 650 mg PO Q4H PRN PRN Reason: Pain (Mild 1-3)/fever Last Admin: 09/13/18 19:18 Dose: 650 mg [facility]) [facility] [place] Last Admin: 09/14/18 10:03 Dose: 81 mg Diphenhydramine HCl (Benadryl) 25 mg PO BEDTIME PRN PRN Reason: Insomnia Enoxaparin Sodium (Lovenox) 40 mg SUBCUT Q24H [facility] Last Admin: 09/14/18 13:34 Dose: 40 mg Ondansetron HCl (Zofran) 4 mg IV Q4H PRN PRN Reason: Nausea/Vomiting Rosuvastatin Calcium (Crestor) [facility] [place] Last Admin: 09/14/18 10:02 Dose: Not Given Senna/Docusate Sodium (Senna Plus) 1 tab PO BID PRN PRN Reason: Constipation Sodium Chloride (Saline Flush) 10 ml FLUSH ASDIRECTED PRN PRN Reason: Keep Vein Open Discontinued Medications Sodium Chloride (Normal Saline) 1,000 mls @ 999 mls/hr IV ASDIRECTED [facility] Last Admin: 09/13/18 11:40 Dose: 999 mls/hr Sodium Chloride (Normal Saline) 1,000 mls @ 400 mls/hr IV ASDIRECTED [facility] Sodium Chloride (Normal Saline) 1,000 mls @ 75 mls/hr IV ASDIRECTED [facility] Last Admin: 09/14/18 05:00 Dose: 75 mls/hr Ondansetron HCl (Zofran) 4 mg IVPUSH ONETIME ONE Stop: 09/13/18 10:45 Last Admin: 09/13/18 11:11 Dose: 4 mg - Exam Quality Assessment: DVT Prophylaxis General: Alert, Oriented, Cooperative, Mild Distress Lungs: Clear to Auscultation, Normal Respiratory Effort Cardiovascular: Regular Rate, Regular Rhythm, No Murmurs GI/Abdominal Exam: Soft, Non-Tender, No Organomegaly, No Distention Extremities: Non-Tender, No Pedal Edema - Problem List Review Problem List Initiated/Reviewed/Updated: Yes - My Orders Last 24 Hours: My Active Orders 09/13/18 22:05 diphenhydrAMINE [Benadryl] 25 mg PO BEDTIME PRN 09/14/18 09:00 Aspirin 81 mg PO QAM Rosuvastatin [Crestor] 2.5 mg PO QAM 09/14/18 17:21 Convert IV to Saline Lock [OM.PC] Routine - Plan Plan:: ASSESSMENT AND PLAN SYNCOPAL EPISODE-no preceding symptoms or prodrome. Found to have significant orthostasis in the emergency department, this has resolved after infusion of IV fluids. No significant orthostatic hypotension or cardiac dysrhythmias have been identified. -Cardiac monitoring -Consider outpatient echocardiogram and Holter monitor -Further IV fluids for hydration PAIN RIGHT BUTTOCK AND HIP-x-rays of the lumbar spine, pelvis, and hip showed no evidence of fracture. Pain is likely secondary to a soft tissue injury from her fall. She is sore but has been able to weight-bear without significant difficulty. -Tylenol as needed for pain -Physical therapy consult in a.m. CHRONIC KIDNEY DISEASE STAGE III -Closely monitor urine output and renal function during hospital stay MAINTENANCE ISSUES -DVT prophylaxis; Lovenox 40 mg subcutaneous daily -GI prophylaxis; not indicated -Dubois catheter; not indicated -Nutrition; regular diet -Nicotine dependence; not required CODE STATUS-FULL CODE ADMISSION STATUS-patient will be admitted to inpatient status, expect at least a 2 night hospital stay for evaluation and management of problems as outlined above. At the time of this admission I do not reasonably expected evaluation and management of this problem will require more than a 96 hour hospital stay. DISPOSITION-anticipate discharge to home after the hospital stay. PRIMARY CARE PROVIDER-Dr. Carlin
[2018-09-15 07:26] VITALS: BP 127/63
[2018-09-15] MEDS: Aspirin 81 MG Tab.Chew PO SCH (11:34)
[2018-09-15] MEDS: Rosuvastatin 10 MG Tab PO SCH (11:34)
--- NOTE | 2018-09-15 12:00 | PCM.DCSUM1 ---
Discharge Summary - Hospital Course Brief History: Ms. Gipson is an 88-year-old woman who was admitted to observation status through the emergency department for further evaluation and management of a syncopal episode, secondary to dehydration and orthostatic hypotension - Discharge Data Discharge Date: 09/15/18 Discharge Disposition: Home, Self-Care 01 Condition: Fair - Discharge Diagnosis/Problem(s) (1) Syncope SNOMED Code(s): 923653702 ICD Code: R55 - SYNCOPE AND COLLAPSE Status: Acute Current Visit: Yes (2) Orthostatic hypotension SNOMED Code(s): 39158144 ICD Code: I95.1 - ORTHOSTATIC HYPOTENSION Status: Acute Current Visit: Yes (3) Dehydration SNOMED Code(s): 73621296 ICD Code: E86.0 - DEHYDRATION Status: Acute Current Visit: Yes - Patient Summary/Data Consults: Consultations 09/13/18 13:49 PT Evaluation and Treatment [CONS] Routine Please Evaluate and Treat. PT Reason for Consult: weakness This query below is only for informational purposes and is not editable. Hospital Course: Ms. Gipson is an 88-year-old woman who was admitted through the emergency department to observation status, for further evaluation of a syncopal episode. She was feeling well this morning and was up moving about in her kitchen when she suddenly lost consciousness and woke up on the floor. She did not have much in the way of preceding symptoms and had been feeling well up until the episode of syncope. She has a history of 1 previous syncopal episode that occurred approximately 15 years ago. She has otherwise been feeling well, denies any history of chest pain, palpitations, or lightheadedness. Evaluation in the emergency department has been remarkable for orthostatic hypotension but no other significant abnormalities have been identified. Laboratory studies and CT scan of the head were unremarkable. Cardiac monitoring thus far in the emergency department has shown no significant dysrhythmias. She currently is on no blood pressure lowering medications. On admission she was given IV fluids for hydration. Serial orthostatic vital signs were obtained and remained within normal range after admission. Cardiac monitoring showed no evidence of significant dysrhythmia during the 2 days of her hospital stay. Laboratory studies obtained in follow-up remained unremarkable. She was offered home care services with home physical therapy and occupational therapy at the time of discharge which she has refused. Activity will be as tolerated she will continue her usual diet and did ask her to increase sodium intake and to actively work on fluid intake to maintain hydration. Follow-up appointment will be scheduled with her primary care provider within one week. - Patient Instructions Diet: Usual Diet as Tolerated Activity: As Tolerated Other/Special Instructions: Please schedule follow-up appointment with primary care provider within one week. - Discharge Plan *PRESCRIPTION DRUG MONITORING PROGRAM REVIEWED*: Not Applicable *COPY OF PRESCRIPTION DRUG MONITORING REPORT IN PATIENT GRISELDA: Not Applicable Home Medications: Home Meds Aspirin [Isidro Chewable Aspirin] 81 mg PO QAM 08/15/13 [History] Multivit-Min/FA/Lycopene/Lut [Centrum Silver] 1 each PO QAM 08/15/13 [History] Rosuvastatin [Crestor] 5 mg PO ASDIRECTED 08/15/13 [History] Docusate Sodium 100 mg PO DAILY 04/02/15 [History] Referrals: Rylan Carlin MD [Physician] - - Discharge Summary/Plan Comment DC Time >30 min.: No - Patient Data Vitals - Most Recent: Last Vital Signs Temp 97.0 F 09/15/18 07:00 Pulse 61 09/15/18 07:00 Resp 16 09/15/18 07:00 BP 127/63 09/15/18 07:00 Pulse Ox 93 L 09/15/18 07:00 Orthostatic Blood Pressure [ 128/75 Standing] Orthostatic Blood Pressure [ 132/69 Sitting] Orthostatic Blood Pressure [ 121/72 Supine] Weight - Most Recent: 133 lb 9.6 oz I&O - Last 24 hours: Intake & Output 09/14/18 09/15/18 09/15/18 21:59 06:59 14:59 Intake Total 600 Output Total Balance 600 Med Orders - Current: Current Medications Acetaminophen (Tylenol) 650 mg PO Q4H PRN PRN Reason: Pain (Mild 1-3)/fever Last Admin: 09/13/18 19:18 Dose: 650 mg Aspirin (Aspirin) 81 mg PO QAM [facility] Last Admin: 09/15/18 11:34 Dose: Not Given Diphenhydramine HCl (Benadryl) 25 mg PO BEDTIME PRN PRN Reason: Insomnia Enoxaparin Sodium (Lovenox) 40 mg SUBCUT Q24H [facility] Last Admin: 09/14/18 13:34 Dose: 40 mg Ondansetron HCl (Zofran) 4 mg IV Q4H PRN PRN Reason: Nausea/Vomiting Rosuvastatin Calcium (Crestor) 2.5 mg PO QAM [facility] Last Admin: 09/15/18 11:34 Dose: Not Given Senna/Docusate Sodium (Senna Plus) 1 tab PO BID PRN PRN Reason: Constipation Sodium Chloride (Saline Flush) 10 ml FLUSH ASDIRECTED PRN PRN Reason: Keep Vein Open Discontinued Medications Sodium Chloride (Normal Saline) 1,000 mls @ 999 mls/hr IV ASDIRECTED [facility] Last Admin: 09/13/18 11:40 Dose: 999 mls/hr Sodium Chloride (Normal Saline) 1,000 mls @ 400 mls/hr IV ASDIRECTED [facility] Sodium Chloride (Normal Saline) 1,000 mls @ 75 mls/hr IV ASDIRECTED [facility] Last Admin: 09/14/18 05:00 Dose: 75 mls/hr Ondansetron HCl (Zofran) 4 mg IVPUSH ONETIME ONE Stop: 09/13/18 10:45 Last Admin: 09/13/18 11:11 Dose: 4 mg - Exam General: Reports: Alert, Oriented, Cooperative, No Acute Distress Lungs: Reports: Clear to Auscultation, Normal Respiratory Effort Cardiovascular: Reports: Regular Rate, Regular Rhythm, No Murmurs GI/Abdominal Exam: Soft, Non-Tender, No Organomegaly, No Distention
== END 2018-09-15 12:19 | disposition home or self-care (01) ==
LOC: JP.ED 10:09 → JP.2SS 13:16
PROVIDERS: ADMIT Hospitalist; ATTEND Hospitalist
DX: I95.1 Orthostatic hypotension (principal); E86.0 Dehydration; E78.00 Pure hypercholesterolemia, unspecified; N18.3 Chronic kidney disease, stage 3 (moderate); M25.559 Pain in unspecified hip; Z86.73 Personal history of transient ischemic attack (TIA), and cerebral infarction without residual deficits; Z79.82 Long term (current) use of aspirin; Z79.899 Other long term (current) drug therapy; Z88.5 Allergy status to narcotic agent
CPT/HCPCS: 36415; 70450; 72110; 72170; 72220; 80048; 80053; 81001; 82550; 83735; 84484; 85025; 93005; 96361; 96372; 96374; 97161; 99285; A9270; G0378; J1650; J2405; J7030

== ENCOUNTER 2018-09-22 12:01 | Emergency (ER) | payer MEDICARE, BC ==
[2018-09-22 12:18] VITALS: BP 159/68
--- NOTE | 2018-09-22 12:48 | EDM.PDOC ---
ED HPI GENERAL MEDICAL PROBLEM - General Chief Complaint: General Stated Complaint: WEAK, FAINT FEELING Time Seen by Provider: 09/22/18 12:35 Source of Information: Reports: Patient History Limitations: Reports: No Limitations - History of Present Illness INITIAL COMMENTS - FREE TEXT/NARRATIVE: 88-year-old female who was hospitalized one week ago for 3 days after a syncopal episode, was feeling well but last night woke up at 2:30 AM feeling nauseated and lightheaded. She had her neighbor bring her in this morning because she just doesn't feel well. No fever or chills, no pain other than a mild headache, no cough or shortness of breath. No dysuria, nausea or vomiting or diarrhea. Onset: Unknown/Unsure - Related Data Allergies Allergy/AdvReac Type Severity Reaction Status Date / Time codeine Allergy Severe Cannot Verified 09/22/18 12:23 Remember prochlorperazine edisylate Allergy Unknown Cannot Verified 09/22/18 12:23 [From Compazine] Remember prochlorperazine maleate Allergy Unknown Cannot Verified 09/22/18 12:23 [From Compazine] Remember ezetimibe [From Zetia] Allergy Cannot Verified 09/22/18 12:23 Remember midazolam HCl [From Versed] Allergy Rash Verified 09/22/18 12:23 Home Meds: Home Meds Aspirin [Isidro Chewable Aspirin] 81 mg PO QAM 08/15/13 [History] Multivit-Min/FA/Lycopene/Lut [Centrum Silver] 1 each PO QAM 08/15/13 [History] Rosuvastatin [Crestor] 5 mg PO ASDIRECTED 08/15/13 [History] Docusate Sodium 100 mg PO DAILY 04/02/15 [History] Past Medical History HEENT History: Reports: None Cardiovascular History: Reports: High Cholesterol Gastrointestinal History: Reports: Chronic Constipation, Diverticulosis Genitourinary History: Reports: Other (See Below) Other Genitourinary History: urethracarnuncle 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 [employer] 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 DEVELOPER in [facility] shows abnormal ovary Musculoskeletal History: Reports: Fracture Other Musculoskeletal History: coccyx fx, left arm fx Neurological History: Reports: CVA Other Neuro History: L leg affected fatigues easily - Infectious Disease History Infectious Disease History: Reports: Mumps - Past Surgical History Head Surgeries/Procedures: Reports: None HEENT Surgical History: Reports: Eye Surgery, Tonsillectomy Cardiovascular Surgical History: Reports: None GI Surgical History: Reports: Appendectomy, Cholecystectomy Female Surgical History: Reports: D&C, Other (See Below) Other Female Surgeries/Procedures: urethral dilation surgery Neurological Surgical History: Reports: Lumbar Spine Musculoskeletal Surgical History: Reports: Arthroscopic Knee Dermatological Surgical History: Reports: None Social & Family History - Family History Family Medical History: Noncontributory - Tobacco Use Smoking Status *Q: Never Smoker - Caffeine Use Caffeine Use: Reports: Coffee ED ROS GENERAL - Review of Systems Review Of Systems: See Below Constitutional: Reports: Malaise, Weakness. Denies: Fever, Chills HEENT: Reports: No Symptoms Respiratory: Denies: Shortness of Breath, Cough Cardiovascular: Denies: Chest Pain Endocrine: Reports: Fatigue GI/Abdominal: Denies: Abdominal Pain, Nausea, Vomiting : Reports: No Symptoms Skin: Reports: No Symptoms Neurological: Reports: Dizziness. Denies: Headache Psychiatric: Reports: No Symptoms ED EXAM, GENERAL - Physical Exam Exam: See Below Exam Limited By: No Limitations General Appearance: Alert, No Apparent Distress Eye Exam: Bilateral Eye: Normal Inspection Head: Atraumatic Respiratory/Chest: No Respiratory Distress, Lungs Clear Cardiovascular: Regular Rate, Rhythm, Extra Beats GI/Abdominal: Soft, Non-Tender Extremities: Normal Inspection. No: Pedal Edema Neurological: Alert, Oriented, No Motor/Sensory Deficits Psychiatric: Normal Affect, Normal Mood Skin Exam: Warm, Dry Course - Vital Signs Last Recorded V/S: Last Vital Signs Temp 95.4 F 09/22/18 12:31 Pulse 74 09/22/18 12:31 Resp 16 09/22/18 12:31 BP 159/68 H 09/22/18 12:31 Pulse Ox 97 09/22/18 12:31 - Orders/Labs/Meds Labs: Laboratory Tests 09/22/18 09/22/18 09/22/18 Range/Units 12:58 12:58 14:03 WBC 4.7 (4.5-11.0) K/uL RBC 4.68 (3.30-5.50) M/uL Hgb 13.8 (12.0-15.0) g/dL Hct 41.1 (36.0-48.0) % MCV 88 (80-98) fL MCH 30 (27-31) pg MCHC 34 (32-36) % Plt Count 260 (150-400) K/uL Neut % (Auto) 63 (36-66) % Lymph % (Auto) 27 (24-44) % [place] % (Auto) 9 H (2-6) % Eos % (Auto) 1 L (2-4) % Baso % (Auto) 1 (0-1) % Sodium 137 L (140-148) mmol/L Potassium 4.2 (3.6-5.2) mmol/L Chloride 103 (100-108) mmol/L Carbon Dioxide 29 (21-32) mmol/L Anion Gap 9.2 (5.0-14.0) mmol/L BUN 18 (7-18) mg/dL Creatinine 0.9 (0.6-1.0) mg/dL Est Cr Clr Drug Dosing 35.05 mL/min Estimated GFR (MDRD) 59 L (>60) Glucose 85 (74-106) mg/dL Calcium 9.1 (8.5-10.1) mg/dL Troponin I < 0.017 (0.000-0.056) ng/mL Urine Color Yellow Urine Appearance Clear Urine pH 7.0 (4.5-8.0) Ur Specific [place] 1.010 (1.008-1.030) Urine Protein Negative (NEGATIVE) mg/dL Urine Glucose (UA) Normal (NEGATIVE) mg/dL Urine Ketones Negative (NEGATIVE) mg/dL Urine Occult Blood Negative (NEGATIVE) Urine Nitrite Negative (NEGATIVE) Urine Bilirubin Negative (NEGATIVE) Urine Urobilinogen Normal (NORMAL) mg/dL Ur Leukocyte Esterase Negative (NEGATIVE) Urine RBC 0-5 (0-5) Urine WBC Not seen (0-5) Ur Epithelial Cells Not seen Amorphous Sediment Not seen Urine Bacteria Not seen Urine Mucus Not seen - Re-Assessments/Exams Free Text/Narrative Re-Assessment/Exam: 09/22/18 14:28 All blood work and urine are completely normal. Patient was reassured, urged to stay hydrated and increase activity as tolerated. She can return anytime if worsening such as shortness of breath or fever. Departure - Departure Time of Disposition: 15:09 Disposition: Home, Self-Care 01 Condition: Good Clinical Impression: Generalized weakness - Discharge Information Instructions: Weakness, [id number] Referrals: PCP,None [Primary Care Provider] - Forms: ED Department Discharge Care Plan Goals: Continue any current medications, stay hydrated and increase activity and diet as tolerated. Consider rechecking in 2-3 days if not improving satisfactorily, or return anytime if worsening such as shortness of breath or fever.
== END 2018-09-22 15:41 | disposition home or self-care (01) ==
LOC: JP.ED 12:01
DX: R53.1 Weakness (principal); E78.00 Pure hypercholesterolemia, unspecified; Z88.5 Allergy status to narcotic agent; Z88.8 Allergy status to other drugs, medicaments and biological substances; Z79.82 Long term (current) use of aspirin; Z79.899 Other long term (current) drug therapy
CPT/HCPCS: 36415; 80048; 81001; 84484; 85025; 99283

== ENCOUNTER 2019-04-19 13:22 | Emergency (ER) | payer MEDICARE, BC ==
[2019-04-19 13:43] VITALS: BP 159/74; PULSE 65
--- NOTE | 2019-04-19 14:21 | EDM.PDOC ---
ED HPI GENERAL MEDICAL PROBLEM - General Chief Complaint: General Stated Complaint: WEAKNESS Time Seen by Provider: 04/19/19 13:40 Source of Information: Reports: Patient History Limitations: Reports: No Limitations - History of Present Illness INITIAL COMMENTS - FREE TEXT/NARRATIVE: 88 yo female presents with her son to the ER complaining of "I just feel awful" she describes walking from her dining room to living room feeling that she could pass-out and having to lay down on the couch. Like episode occurred last week at [employer]dh[employer] and she had to set down. She denies CP during these incidents. she does complain of increase in urinary frequency. Her appetite has been normal. denies diarrhea but does c/o constipation. - Related Data Allergies Allergy/AdvReac Type Severity Reaction Status Date / Time codeine Allergy Severe Cannot Verified 09/22/18 12:23 Remember prochlorperazine edisylate Allergy Unknown Cannot Verified 09/22/18 12:23 [From Compazine] Remember prochlorperazine maleate Allergy Unknown Cannot Verified 09/22/18 12:23 [From Compazine] Remember ezetimibe [From Zetia] Allergy Cannot Verified 09/22/18 12:23 Remember midazolam HCl [From Versed] Allergy Rash Verified 09/22/18 12:23 Home Meds: Home Meds Multivit-Min/FA/Lycopene/Lut [Centrum Silver] 1 each PO QAM 08/15/13 [History] Docusate Sodium 100 mg PO DAILY 04/02/15 [History] Past Medical History HEENT History: Reports: None Cardiovascular History: Reports: High Cholesterol Gastrointestinal History: Reports: Chronic Constipation, Diverticulosis Genitourinary History: Reports: Other (See Below) Other Genitourinary History: urethracarnuncle 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 [facility] shows abnormal ovary Musculoskeletal History: Reports: Fracture Other Musculoskeletal History: coccyx fx, left arm fx Neurological History: Reports: CVA Other Neuro History: L leg affected fatigues easily - Infectious Disease History Infectious Disease History: Reports: Mumps - Past Surgical History Head Surgeries/Procedures: Reports: None HEENT Surgical History: Reports: Eye Surgery, Tonsillectomy Cardiovascular Surgical History: Reports: None GI Surgical History: Reports: Appendectomy, Cholecystectomy Female Surgical History: Reports: D&C, Other (See Below) Other Female Surgeries/Procedures: urethral dilation surgery Neurological Surgical History: Reports: Lumbar Spine Musculoskeletal Surgical History: Reports: Arthroscopic Knee Dermatological Surgical History: Reports: None Social & Family History - Family History Family Medical History: Noncontributory - Tobacco Use Smoking Status *Q: Never Smoker - Caffeine Use Caffeine Use: Reports: None - Recreational Drug Use Recreational Drug Use: No ED ROS GENERAL - Review of Systems Review Of Systems: See Below Constitutional: Reports: Malaise, Fatigue. Denies: Fever, Chills HEENT: Denies: Sinus Problem Respiratory: Denies: Shortness of Breath, Wheezing, Cough Cardiovascular: Denies: Chest Pain, Edema, Palpitations GI/Abdominal: Reports: Constipation. Denies: Abdominal Pain, Diarrhea ED EXAM, GENERAL - Physical Exam Exam: See Below Exam Limited By: No Limitations General Appearance: Alert, WD/WN, No Apparent Distress Head: Atraumatic, Normocephalic Neck: Normal Inspection, Supple, Non-Tender, Full Range of Motion. No: Lymphadenopathy (R), Lymphadenopathy (L) Respiratory/Chest: No Respiratory Distress, Lungs Clear, Normal Breath Sounds, No Accessory Muscle Use, Chest Non-Tender. No: Crackles, Rhonchi, Wheezing Cardiovascular: Regular Rate, Rhythm, No Murmur GI/Abdominal: Normal Bowel Sounds, Soft, No Organomegaly, Tender (mild LLQ) Back Exam: No: CVA Tenderness (R), CVA Tenderness (L) Neurological: Alert, Oriented Psychiatric: Normal Affect, Normal Mood Skin Exam: Warm, Dry, Intact, Normal Color, No Rash Course - Vital Signs Last Recorded V/S: Last Vital Signs Temp 36.3 C 04/19/19 13:47 Pulse 65 04/19/19 13:47 Resp 14 04/19/19 13:47 BP 159/74 H 04/19/19 13:47 Pulse Ox 96 04/19/19 13:47 Orthostatic Blood Pressure [ 130/73 Standing] Orthostatic Blood Pressure [ 122/74 Sitting] Orthostatic Blood Pressure [ 144/65 Supine] - Orders/Labs/Meds Orders: Active Orders 24 hr Category Date Time Status Orthostatic Vital Signs [RC] ASDIRECTED Care 04/19/19 15:31 Active Labs: Laboratory Tests 10/12/19 10/12/19 10/12/19 Range/Units 14:30 14:30 15:32 WBC 6.4 (4.5-11.0) K/uL RBC 4.89 (3.30-5.50) M/uL Hgb 14.4 (12.0-15.0) g/dL Hct 42.6 (36.0-48.0) % MCV 87 (80-98) fL MCH 29 (27-31) pg MCHC 34 (32-36) % Plt Count 254 (150-400) K/uL Neut % (Auto) 78 H (36-66) % Lymph % (Auto) 15 L (24-44) % [place] % (Auto) 7 H (2-6) % Eos % (Auto) 1 L (2-4) % Baso % (Auto) 0 (0-1) % Sodium 137 L (140-148) mmol/L Potassium 4.1 (3.6-5.2) mmol/L Chloride 100 (100-108) mmol/L Carbon Dioxide 27 (21-32) mmol/L Anion Gap 14.1 H (5.0-14.0) mmol/L BUN 13 (7-18) mg/dL Creatinine 0.9 (0.6-1.0) mg/dL Est Cr Clr Drug Dosing 34.28 mL/min Estimated GFR (MDRD) 59 L (>60) Glucose 101 (74-106) mg/dL Calcium 8.9 (8.5-10.1) mg/dL Total Bilirubin 0.5 (0.2-1.0) mg/dL AST 27 (15-37) U/L ALT 37 (12-78) U/L Alkaline Phosphatase 95 (46-116) U/L Total Protein 7.1 (6.4-8.2) g/dL Albumin 3.4 (3.4-5.0) g/dL Globulin 3.7 H (2.3-3.5) g/dL Albumin/Globulin Ratio 0.9 L (1.2-2.2) Urine Color Yellow (YELLOW) Urine Appearance Clear (CLEAR) Urine pH 7.0 (5.0-8.0) Ur Specific [place] 1.015 (1.008-1.030) Urine Protein Negative (NEGATIVE) mg/dL Urine Glucose (UA) Negative (NEGATIVE) mg/dL Urine Ketones Negative (NEGATIVE) mg/dL Urine Occult Blood Trace-intact H (NEGATIVE) Urine Nitrite Negative (NEGATIVE) Urine Bilirubin Negative (NEGATIVE) Urine Urobilinogen 0.2 (0.2-1.0) EU/dL Ur Leukocyte Esterase Negative (NEGATIVE) Urine RBC 0-5 (0-5) Urine WBC Not seen (0-5) Ur Epithelial Cells Rare Amorphous Sediment Not seen Urine Bacteria Rare Urine Mucus Not seen Meds: Medications Discontinued Medications Generic Name Dose Route Start Last Admin Trade Name Danielle PRN Reason Stop Dose Admin Ibuprofen 200 mg 04/19/19 16:20 04/19/19 16:29 Motrin PO 04/19/19 16:21 200 mg ONETIME ONE Administration - Re-Assessments/Exams Free Text/Narrative Re-Assessment/Exam: 04/19/19 16:27 ua not indicative of UTI. very mild hyponatermia. kidney function is at baseline. extensive discussion had on all the normal labs with pt and family. pt does live at home independently she is her today with a son that lives put of [facility]. Departure - Departure Time of Disposition: 16:35 Disposition: Home, Self-Care 01 Condition: Good Clinical Impression: Weakness - Discharge Information *PRESCRIPTION DRUG MONITORING PROGRAM REVIEWED*: Not Applicable *COPY OF PRESCRIPTION DRUG MONITORING REPORT IN PATIENT GRISELDA: Not Applicable Referrals: Rylan Carlin MD [Primary Care Provider] - Forms: ED Department Discharge Additional Instructions: follow-up with your primary care provider if these episodes continue add a sports drink daily to your diet increase fluid intake with goal of 64 ounces per day - My Orders Last 24 Hours: My Active Orders 04/19/19 15:31 Orthostatic Vital Signs [RC] ASDIRECTED - Assessment/Plan Last 24 Hours: My Active Orders 04/19/19 15:31 Orthostatic Vital Signs [RC] ASDIRECTED
[2019-04-19] MEDS ORDERED: Ibuprofen 200 MG Tab, 24 Tab Bulk Bottle PO ONE (16:12)
[2019-04-19] MEDS ORDERED: Ibuprofen 200 MG Tab PO ONE (16:20)
== END 2019-04-19 16:47 | disposition home or self-care (01) ==
LOC: JP.ED 13:22
DX: R53.1 Weakness (principal); Z88.5 Allergy status to narcotic agent; Z88.8 Allergy status to other drugs, medicaments and biological substances
CPT/HCPCS: 36415; 80053; 81001; 85025; 99284; A9270; 99282